=== PATIENT | male | born 1965 | race Caucasian/White ===

== ENCOUNTER → 2017-10-23 | Outpatient (CLI) | payer OTHER ==
[~2017-10-23] VITALS: Ht 170.2 cm; Wt 90.7 kg
[~2017-10-23] MED LIST: CIALIS20 MG PO; GLUCOPHAGE XR,500 MG PO; MAGNESIUM400 M1 PO; PRAVACHOL10 MG PO; PROTONIX40 MG PO
[2017-10-23 09:31] LABS: POINT-OF-CARE METER ID UU14107333
[2017-10-23 11:12] LABS: POINT-OF-CARE METER ID UU13113819
== END | disposition home or self-care (01) ==
LOC: AMB 08:22
PROVIDERS: Internal Medicine Gastroenterology
DX: K83.9 Disease of biliary tract, unspecified (principal); I10 Essential (primary) hypertension; K21.0 Gastro-esophageal reflux disease with esophagitis; Z87.891 Personal history of nicotine dependence; G47.33 Obstructive sleep apnea (adult) (pediatric); G89.29 Other chronic pain; M54.5 Low back pain; E66.9 Obesity, unspecified; Z68.31 Body mass index [BMI] 31.0-31.9, adult; R73.03 Prediabetes; N40.0 Benign prostatic hyperplasia without lower urinary tract symptoms; E78.2 Mixed hyperlipidemia; F10.11 Alcohol abuse, in remission; Z83.79 Family history of other diseases of the digestive system; Z80.3 Family history of malignant neoplasm of breast; Z82.61 Family history of arthritis; Z82.49 Family history of ischemic heart disease and other diseases of the circulatory system; Z83.49 Family history of other endocrine, nutritional and metabolic diseases; Z79.84 Long term (current) use of oral hypoglycemic drugs
CPT/HCPCS: 82948; 88305; 93005; C1726; J0330; J2405; J3010

== ENCOUNTER → 2017-12-04 | Outpatient (CLI) | payer OTHER | END | disposition home or self-care (01) | LOC: CDC 11:09 | DX: Z01.810 Encounter for preprocedural cardiovascular examination (principal); K64.4 Residual hemorrhoidal skin tags; K64.8 Other hemorrhoids; I45.10 Unspecified right bundle-branch block; R00.1 Bradycardia, unspecified | CPT/HCPCS: 93000 ==

== ENCOUNTER 2017-12-12 08:10 | Day surgery (SDC) | payer OTHER ==
[~2017-12-12] VITALS: Ht 172.7 cm; Wt 95.3 kg
[~2017-12-12 08:10] MED LIST changes: +CYANOCOBALAM1000 MCG PO; +FLOMAX0.4 MG PO; +LIPITOR20 MG PO; -PRAVACHOL10 MG PO
[2017-12-12 08:37] VITALS: BP 136/74
[2017-12-12] MEDS ORDERED: PERCOCET 5/31 TABLET PO (12:16)
[2017-12-12 13:14] VITALS: BP 160/82
[2017-12-12 14:15] VITALS: BP 107/53
[2017-12-12 15:12] VITALS: BP 127/75
== END 2017-12-12 15:19 | disposition home or self-care (01) ==
LOC: SDC 08:10
PROVIDERS: Surgery
DX: K64.3 Fourth degree hemorrhoids (principal); K62.3 Rectal prolapse; I10 Essential (primary) hypertension; E78.5 Hyperlipidemia, unspecified; K21.9 Gastro-esophageal reflux disease without esophagitis; E11.9 Type 2 diabetes mellitus without complications; G47.33 Obstructive sleep apnea (adult) (pediatric); Z79.84 Long term (current) use of oral hypoglycemic drugs; Z87.891 Personal history of nicotine dependence
CPT/HCPCS: 82948; 88304; J0131; J0690; J1100; J1170; J2250; J2405; J3010

== ENCOUNTER 2017-12-12 19:44 | Emergency (ER) | payer OTHER ==
[~2017-12-12] VITALS: Ht 170.2 cm; Wt 92.2 kg
[~2017-12-12 19:44] MED LIST changes: +PERCOCET 5/31 TABLET PO
[2017-12-12 20:33] LABS: APPEARANCE CLEAR ((CLEAR)); BILIRUBIN NEGATIVE; BLOOD NEGATIVE; COLOR YELLOW ((YELLOW)); GLUCOSE (STRIP) NEGATIVE; KETONES NEGATIVE; LEUKOCYTES NEGATIVE; NITRITE NEGATIVE; PROTEIN (STRIP) NEGATIVE; UCUL ADDED? NO; UROBILINOGEN 0.2 MG/DL (0.2-1.0)
[2017-12-12 21:34] VITALS: BP 141/87
== END 2017-12-12 21:55 | disposition home or self-care (01) ==
LOC: EME 19:44
PROVIDERS: Emergency Medicine
DX: R33.9 Retention of urine, unspecified (principal); F32.9 Major depressive disorder, single episode, unspecified; Z87.891 Personal history of nicotine dependence; Z98.890 Other specified postprocedural states
CPT/HCPCS: 81003; 99281; 99284